=== PATIENT | male | born 1955 | race Caucasian/White ===

== ENCOUNTER 2020-12-27 09:19 | Inpatient (IN) | payer MEDICARE, OTHER ==
[~2020-12-27] VITALS: Ht 182.9 cm; Wt 129.0 kg
[~2020-12-27 09:19] MED LIST: 3IN1 COMMODE; ACETAMINOPHEN500 M1 PO; AMIODARONE HCL200 MG PO; ASCORBIC ACID500 MG PO; ASPIR 8181 MG PO; ATARAX25 MG PO; ATROVENT (00.2 MG/ML INH; BACLOFEN 10MG T10 MG PO; BETADINE30 ML TOP; BREO ELLIPTA 11 EACH INH; BREO ELLIPTA 11 EACH PO; BUSPAR5 MG PO; CLARITIN-D 241 EACH PO; CLARITIN10 MG PO; COLACE100 MG PO; CYCLOBENZAPRINE10 MG PO; CYMBALTA 30MG C30 MG PO; DESENEX85 GM TOP; DIAZEPAM 5MG TAB5 MG PO; DIGITEK125 MCG PO; DIGITEK250 MCG PO; DULERA 200 MCG8.8 GM INH; DUONEB 2.5-0.5M1 AMP INH; DUONEB 2.5-0.5M1 AMP NEB; FLEXERIL5 MG PO; FLOMAX 0.4 MG0.4 MG PO; FLORASTOR250 MG PO; FOLIC ACID1 MG PO; FUROSEMIDE 40MG40 MG PO; HUMULIN R100 UNIT/2 SC; HYTRIN5 MG PO; ILOTYCIN1 GM OU; IMODIUM2 MG PO; LACTINEX1 EACH PO; LANOXIN250 MCG PO; LASIX40 MG PO; LIPITOR80 MG PO; LOPRESSOR25 MG PO; METFORMIN HCL500 MG PO; MICRO-K10 MEQ PO; MUCINEX 600MG600 MG PO; MYCOLOG15 GM TOP; NEURONTIN300 MG PO; NORCO 5-325 TA1 EACH PO; OXYCONTIN 10MG10 MG PO; OXYCONTIN 40MG40 MG PO; OXYCONTIN20 MG PO; PERCOCET 5-3251 EACH PO; POLY-IRON150 MG PO; PRAZOSIN HCL5 MG PO; PREDNISONE 20MG20 MG PO; PREDNISONE5 MG PO; PRILOSEC20 MG PO; PRINIVIL10 MG PO; PROTONIX 40MG T40 MG PO; SANTYL15 GM TOP; SINGULAIR10 MG PO; UROCIT-K10 MEQ PO; VENTOLIN HFA IN18 GM INH; WELLBUTRIN XL150 MG PO; XARELTO10 MG PO; XARELTO20 MG PO
[2020-12-27 10:14] LABS: BASOPHIL 0.4 % (0-2); EOSINOPHIL 2.3 % (0-7); HCT 44.5 % (42.0-52.0); HGB 12.8 g/dl (13.2-18.0); LYMPHOCYTE 13.1 % (15-48); MCH 27.4 pg (25.0-31.0); MCHC 28.8 g/dL (32.0-36.0); MCV 95.1 fL (78.0-100.0); MONOCYTE 6.4 % (0-12); MPV 9.7 fL (6.0-9.5); NEUTROPHIL 77.5 % (41-80); NRBC 0; PLT 265 K/uL (150-400); RBC 4.68 M/uL (4.70-6.00); RDW 15.8 % (11.5-14.0)
[2020-12-27 10:20] LABS: INR 1.06 (0.9-1.2); PROTHROMBIN TIME 13.1 SECONDS (11.4-13.6); PTT 32.6 SECONDS (22.2-34.7)
[2020-12-27 10:26] LABS: ALBUMIN 2.7 g/dL (3.4-5.0); BILIRUBIN - TOTAL 0.5 mg/dL (0.2-1.0); BUN/CREAT RATIO (CALC) 19.5 RATIO; CREATININE 0.77 mg/dL (0.67-1.17); GLOBULIN (CALCULATION) 4.4 g/dL; TOTAL PROTEIN 7.1 g/dL (6.4-8.2)
[2020-12-27] MEDS ORDERED: WELLBUTRIN XL150 MG PO (17:24)
[2020-12-27] MEDS ORDERED: ZOLOFT50 MG PO (17:36)
[2020-12-27] MEDS ORDERED: NEURONTIN300 MG PO (17:42)
[2020-12-27] MEDS ORDERED: BACLOFEN 10MG T10 MG PO (17:45)
[2020-12-27] MEDS ORDERED: POTASSIUM CHLO10 MEQ PO (17:46)
[2020-12-27] MEDS ORDERED: SINGULAIR10 MG PO (17:49)
[2020-12-27] MEDS ORDERED: PHENERGAN25 M1 PO (17:50)
[2020-12-27] MEDS ORDERED: DITROPAN5 MG PO (17:52)
[2020-12-27] MEDS ORDERED: PRINIVIL10 MG PO (17:53)
[2020-12-27] MEDS ORDERED: VENTOLIN HFA IN18 GM INH (17:53)
[2020-12-28 04:30] LABS: BASOPHIL 0.5 % (0-2); EOSINOPHIL 4.2 % (0-7); HCT 42.7 % (42.0-52.0); HGB 12.1 g/dl (13.2-18.0); LYMPHOCYTE 22.9 % (15-48); MCHC 28.3 g/dL (32.0-36.0); MCV 95.3 fL (78.0-100.0); MPV 9.7 fL (6.0-9.5); NEUTROPHIL 62.2 % (41-80); NRBC 0; PLT 257 K/uL (150-400); RBC 4.48 M/uL (4.70-6.00); RDW 15.9 % (11.5-14.0); WBC 8.4 K/uL (4.0-10.5)
[2020-12-28 05:14] LABS: BUN/CREAT RATIO (CALC) 20.8 RATIO; CREATININE 0.77 mg/dL (0.67-1.17); POTASSIUM 5.1 mmol/L (3.5-5.1)
[2020-12-28] MEDS ORDERED: ELIQUIS5 MG PO (10:43)
== END 2020-12-28 16:23 | DRG 175 ==
LOC: FER 09:19 → FTCU 14:58
PROVIDERS: Emergency Medicine; ADMIT Internal Medicine
DX: I26.99 Other pulmonary embolism without acute cor pulmonale (principal); U07.1 COVID-19; J96.10 Chronic respiratory failure, unspecified whether with hypoxia or hypercapnia; I48.91 Unspecified atrial fibrillation; E78.5 Hyperlipidemia, unspecified; J44.9 Chronic obstructive pulmonary disease, unspecified; Z96.612 Presence of left artificial shoulder joint; G47.30 Sleep apnea, unspecified; I25.10 Atherosclerotic heart disease of native coronary artery without angina pectoris; I50.9 Heart failure, unspecified; G47.33 Obstructive sleep apnea (adult) (pediatric); M19.90 Unspecified osteoarthritis, unspecified site; G89.29 Other chronic pain; M54.9 Dorsalgia, unspecified; M10.9 Gout, unspecified; E11.40 Type 2 diabetes mellitus with diabetic neuropathy, unspecified; E66.01 Morbid (severe) obesity due to excess calories; I11.0 Hypertensive heart disease with heart failure; N40.0 Benign prostatic hyperplasia without lower urinary tract symptoms; K21.9 Gastro-esophageal reflux disease without esophagitis; F17.210 Nicotine dependence, cigarettes, uncomplicated; Z95.1 Presence of aortocoronary bypass graft; Z98.42 Cataract extraction status, left eye; Z98.41 Cataract extraction status, right eye; Z88.6 Allergy status to analgesic agent; Z79.01 Long term (current) use of anticoagulants; Z98.890 Other specified postprocedural states; I25.2 Old myocardial infarction
CPT/HCPCS: 36415; 71045; 71275; 80048; 80053; 84484; 85025; 85610; 85730; 93005; 96372; J1170; J1650; J7030; Q9967; U0002

== ENCOUNTER 2021-05-14 05:50 | Emergency (ER) | payer MEDICARE, OTHER ==
[~2021-05-14 05:50] MED LIST changes: +DITROPAN5 MG PO; +ELIQUIS5 MG PO; +PHENERGAN25 M1 PO; +POTASSIUM CHLO10 MEQ PO; +ZOLOFT50 MG PO
[2021-05-14 06:43] LABS: BASOPHIL 0.3 % (0-2); EOSINOPHIL 0.2 % (0-7); HGB 11.4 g/dl (13.2-18.0); LYMPHOCYTE 7.3 % (15-48); MCH 29.4 pg (25.0-31.0); MCHC 29.2 g/dL (32.0-36.0); MCV 100.5 fL (78.0-100.0); MONOCYTE 7.5 % (0-12); MPV 9.8 fL (6.0-9.5); NEUTROPHIL 84.3 % (41-80); NRBC 0.1; PLT 291 K/uL (150-400); RBC 3.88 M/uL (4.70-6.00); RDW 14.7 % (11.5-14.0); WBC 21.1 K/uL (4.0-10.5)
[2021-05-14 06:48] LABS: INR 1.25 (0.9-1.2); PTT 35.3 SECONDS (24.4-34.7)
[2021-05-14 06:49] LABS: D-DIMER 1.09 ug/mLFEU (0.00-0.41)
[2021-05-14 06:57] LABS: ALBUMIN 2.9 g/dL (3.4-5.0); BILIRUBIN - TOTAL 0.3 mg/dL (0.2-1.0); BUN/CREAT RATIO (CALC) 22.1 RATIO; CREATININE 1.04 mg/dL (0.67-1.17); GLOBULIN (CALCULATION) 3.8 g/dL; POTASSIUM 4.9 mmol/L (3.5-5.1); TOTAL PROTEIN 6.7 g/dL (6.4-8.2)
[2021-05-14 07:08] LABS: LACTIC ACID 1.2 mmol/L (0.4-1.9)
[2021-05-14 07:45] LABS: BILIRUBIN 1+ mg/dL (NEGATIVE); BLOOD NEGATIVE Ery/uL (NEGATIVE); CLARITY CLEAR (CLEAR); COLOR YELLOW (YELLOW); GLUCOSE (U) NORMAL (NORMAL); LEUKOCYTES NEGATIVE Leu/uL (NEGATIVE); NITRITE NEGATIVE (NEGATIVE); PROTEIN 2+ mg/dL (NEGATIVE); SPECIFIC GRAVITY >=1.030 (1.001-1.030); UROBILINOGEN 0.2 mg/dL (0.2-1.0)
[2021-05-14 07:53] LABS: AMORPHOUS URATES CRYSTALS TRACE; BACTERIA TRACE
== END 2021-05-14 14:15 | disposition other institution (70) ==
LOC: FER 05:50
PROVIDERS: Emergency Medicine
DX: J96.01 Acute respiratory failure with hypoxia (principal); J18.9 Pneumonia, unspecified organism; J44.1 Chronic obstructive pulmonary disease with (acute) exacerbation; J44.0 Chronic obstructive pulmonary disease with (acute) lower respiratory infection; I21.4 Non-ST elevation (NSTEMI) myocardial infarction; I48.91 Unspecified atrial fibrillation; I45.10 Unspecified right bundle-branch block; E11.9 Type 2 diabetes mellitus without complications; I25.10 Atherosclerotic heart disease of native coronary artery without angina pectoris; I50.9 Heart failure, unspecified; Z88.5 Allergy status to narcotic agent; Z87.891 Personal history of nicotine dependence; Z99.81 Dependence on supplemental oxygen; Z20.822 Contact with and (suspected) exposure to COVID-19
CPT/HCPCS: 36415; 36600; 71045; 71275; 80053; 81001; 82803; 83605; 83880; 84145; 84484; 85025; 85379; 85610; 85730; 87040; 93005; 94760; J2543; J3370; J7050; U0002

== ENCOUNTER 2021-05-25 22:35 | Day surgery (SDCO) | payer MEDICARE, OTHER ==
[~2021-05-25] VITALS: Ht 177.8 cm; Wt 128.4 kg
[2021-05-25 23:16] LABS: INR 1.1 (0.9-1.2); PROTHROMBIN TIME 13.6 SECONDS (11.8-13.4); PTT 31.3 SECONDS (24.4-34.7)
[2021-05-25 23:18] LABS: BASOPHIL 0.2 % (0-2); EOSINOPHIL 0.3 % (0-7); HCT 40.9 % (42.0-52.0); HGB 11.9 g/dl (13.2-18.0); LYMPHOCYTE 3.5 % (15-48); MCH 28.5 pg (25.0-31.0); MCHC 29.1 g/dL (32.0-36.0); MCV 98.1 fL (78.0-100.0); MPV 9.7 fL (6.0-9.5); NRBC 0; PLT 307 K/uL (150-400); RBC 4.17 M/uL (4.70-6.00); RDW 14.7 % (11.5-14.0)
[2021-05-25 23:25] LABS: WBC 34.7 K/uL (4.0-10.5)
[2021-05-25 23:26] LABS: LACTIC ACID 0.6 mmol/L (0.4-1.9)
[2021-05-25 23:29] LABS: ALBUMIN 2.8 g/dL (3.4-5.0); BILIRUBIN - TOTAL 0.5 mg/dL (0.2-1.0); BUN/CREAT RATIO (CALC) 12.2 RATIO; CREATININE 0.74 mg/dL (0.67-1.17); POTASSIUM 5.1 mmol/L (3.5-5.1); TOTAL PROTEIN 6.8 g/dL (6.4-8.2)
[2021-05-25 23:33] LABS: PRO-BNP 405 pg/mL (<125)
[2021-05-26 02:32] LABS: HCT 38.6 % (42.0-52.0)
[2021-05-26 04:50] LABS: BILIRUBIN NEGATIVE (NEGATIVE); BLOOD NEGATIVE Ery/uL (NEGATIVE); CLARITY CLEAR (CLEAR); COLOR YELLOW (YELLOW); GLUCOSE (U) NORMAL (NORMAL); LEUKOCYTES NEGATIVE Leu/uL (NEGATIVE); NITRITE NEGATIVE (NEGATIVE); PROTEIN NEGATIVE (NEGATIVE); UROBILINOGEN 0.2 mg/dL (0.2-1.0)
--- NOTE | 2021-05-26 05:22 | NUR ---
PATIENT ARRIVED TO FLOOR FROM ER. ALERT AND ORIENTED ABLE TO MAKE NEEDS KNOWN. BED IN LOW POSITION CALL LIGHT IN REACH.
[2021-05-26] MEDS ORDERED: ZOFRAN4 M1 PO (05:35)
[2021-05-26] MEDS ORDERED: PHENERGAN25 M1 PO (05:37)
[2021-05-26] MEDS ORDERED: ELIQUIS5 MG PO (05:42)
[2021-05-26] MEDS ORDERED: VOLTAREN **OUT50 MG PO (05:45)
[2021-05-26] MEDS ORDERED: PRILOSEC20 MG PO (05:48)
[2021-05-26] MEDS ORDERED: LACTAID3000 UNI1 PO (05:53)
[2021-05-26] MEDS ORDERED: EYE ITCH RELIEF5 ML EYEBOTH (05:55)
[2021-05-26 09:05] LABS: BASOPHIL 0.3 % (0-2); EOSINOPHIL 0.5 % (0-7); HCT 36.5 % (42.0-52.0); HGB 10.5 g/dl (13.2-18.0); MCH 28.8 pg (25.0-31.0); MCHC 28.8 g/dL (32.0-36.0); MONOCYTE 5.9 % (0-12); MPV 9.7 fL (6.0-9.5); NEUTROPHIL 83.7 % (41-80); NRBC 0; PLT 279 K/uL (150-400); RBC 3.65 M/uL (4.70-6.00); RDW 14.8 % (11.5-14.0)
[2021-05-26 09:13] LABS: WBC 31.5 K/uL (4.0-10.5)
[2021-05-26 09:49] LABS: BUN/CREAT RATIO (CALC) 22.4 RATIO; CREATININE 0.98 mg/dL (0.67-1.17); POTASSIUM 5.8 mmol/L (3.5-5.1)
--- NOTE | 2021-05-26 11:49 | NUR ---
05/26/21 Mr. Ko was admitted from [facility]. Melinda Felton, [facility], reports that they will accept patient back. Aleydadoe Montoyal / POA / daughter wishes for hime to return to [facility].
--- NOTE | 2021-05-26 19:19 | NUR ---
PATIENT C/O CHEST PAIN AT 1700 AFTER AMBULATING TO RESTROOM, TACHYCARDIC HR 120,EKG ABNORMAL DR HASKINS CALLED, TROPONIN ORDERED, TROPONIN NEGATIVE PATIENT SAID HE HAD A SHARP PAIN TO HIS RIGHT CHEST FOLLOWED BY VOMITING,DR. HASKINS ADVISED TO GIVE ZOFRAN AND ALLOW PATIENT TO EAT SUPPER.
[2021-05-27 06:04] LABS: BASOPHIL 0.3 % (0-2); EOSINOPHIL 2.6 % (0-7); HCT 35.6 % (42.0-52.0); HGB 9.9 g/dl (13.2-18.0); LYMPHOCYTE 11.9 % (15-48); MCHC 27.8 g/dL (32.0-36.0); MCV 100.8 fL (78.0-100.0); MPV 9.9 fL (6.0-9.5); NEUTROPHIL 77.8 % (41-80); NRBC 0; PLT 259 K/uL (150-400); RBC 3.53 M/uL (4.70-6.00); RDW 14.8 % (11.5-14.0)
[2021-05-27 06:14] LABS: ALBUMIN 2.4 g/dL (3.4-5.0); BILIRUBIN - TOTAL 0.2 mg/dL (0.2-1.0); CREATININE 0.79 mg/dL (0.67-1.17); GLOBULIN (CALCULATION) 3.2 g/dL; POTASSIUM 4.8 mmol/L (3.5-5.1); TOTAL PROTEIN 5.6 g/dL (6.4-8.2)
--- NOTE | 2021-05-27 15:45 | NUR ---
05/27/21 8591 PT ASKED RN TO GET BAG WITH CLOTHS OUT OF CLOSET SO HE COULD CHECK POCKETS FOR WALLET. PT HAD $317 IN MCCOLLUM IN PANT POCKET. RN AND PT DISCUSSED OPTIONS AND PT STATED AGGREAABLE TO HAVING SECURITY LOCK $300 OF THE MCCOLLUM UP AND KEEP $17 WITH PATIENT. DIETARY AID WAS NOTIFIED AND SECURITY CALLED.
[2021-05-28 06:28] LABS: BASOPHIL 0.4 % (0-2); EOSINOPHIL 4.6 % (0-7); HCT 34.5 % (42.0-52.0); HGB 9.6 g/dl (13.2-18.0); LYMPHOCYTE 21.3 % (15-48); MCH 28.3 pg (25.0-31.0); MCHC 27.8 g/dL (32.0-36.0); MCV 101.8 fL (78.0-100.0); MONOCYTE 9.1 % (0-12); MPV 9.8 fL (6.0-9.5); NEUTROPHIL 64.3 % (41-80); NRBC 0; PLT 234 K/uL (150-400); RBC 3.39 M/uL (4.70-6.00); RDW 14.6 % (11.5-14.0); WBC 12.2 K/uL (4.0-10.5)
[2021-05-28 06:38] LABS: BUN/CREAT RATIO (CALC) 15.8 RATIO; CREATININE 0.76 mg/dL (0.67-1.17); POTASSIUM 4.4 mmol/L (3.5-5.1)
[2021-05-28] MEDS ORDERED: NEURONTIN300 MG PO (10:21)
[2021-05-28] MEDS ORDERED: PERCOCET 5-3251 EACH PO (10:21)
--- NOTE | 2021-05-28 18:29 | NUR ---
05/28/21 Patient is being discahrged today. [employer] delivered a portable 02 tank. Arrangements were made for [facility] to transport to the [facility].
== END 2021-05-28 13:49 ==
LOC: FER 22:35 → FTCU 05-26 03:55
PROVIDERS: Emergency Medicine Emergency Medical Services; Internal Medicine; Nurse Practitioner; ADMIT Internal Medicine
DX: K21.01 Gastro-esophageal reflux disease with esophagitis, with bleeding (principal); I25.10 Atherosclerotic heart disease of native coronary artery without angina pectoris; I48.20 Chronic atrial fibrillation, unspecified; E78.5 Hyperlipidemia, unspecified; I11.0 Hypertensive heart disease with heart failure; I50.9 Heart failure, unspecified; J44.9 Chronic obstructive pulmonary disease, unspecified; K21.9 Gastro-esophageal reflux disease without esophagitis; E11.40 Type 2 diabetes mellitus with diabetic neuropathy, unspecified; E11.51 Type 2 diabetes mellitus with diabetic peripheral angiopathy without gangrene; E66.01 Morbid (severe) obesity due to excess calories; Z95.1 Presence of aortocoronary bypass graft; Z95.0 Presence of cardiac pacemaker; Z96.612 Presence of left artificial shoulder joint; F17.210 Nicotine dependence, cigarettes, uncomplicated; I44.0 Atrioventricular block, first degree; I45.2 Bifascicular block; A41.9 Sepsis, unspecified organism; R07.89 Other chest pain; D72.829 Elevated white blood cell count, unspecified; Z79.01 Long term (current) use of anticoagulants; Z88.5 Allergy status to narcotic agent; Z20.822 Contact with and (suspected) exposure to COVID-19; D64.9 Anemia, unspecified; K64.4 Residual hemorrhoidal skin tags
CPT/HCPCS: 36415; 71260; 80048; 80053; 81003; 82150; 82962; 83605; 83690; 83880; 84145; 84484; 85014; 85018; 85025; 85610; 85730; 86850; 86900; 86901; 87040; 93005; 94010; 94760; C9113; G0378; J0171; J2270; J2354; J2370; J2405; J2543; J2704; J7030; J7120; Q9967; U0002

== ENCOUNTER 2021-12-07 23:41 | Inpatient (IN) | payer MEDICARE, OTHER ==
[~2021-12-07] VITALS: Ht 180.3 cm; Wt 122.3 kg
[~2021-12-07 23:41] MED LIST changes: +EYE ITCH RELIEF5 ML EYEBOTH; +LACTAID3000 UNI1 PO; +VOLTAREN **OUT50 MG PO; +ZOFRAN4 M1 PO
[2021-12-08 00:22] LABS: BASOPHIL 0.2 % (0-2); EOSINOPHIL 0.2 % (0-7); HGB 13.6 g/dl (13.2-18.0); LYMPHOCYTE 3.3 % (15-48); MCHC 27.2 g/dL (32.0-36.0); MCV 95.6 fL (78.0-100.0); MONOCYTE 5.1 % (0-12); MPV 10.2 fL (6.0-9.5); NEUTROPHIL 90.8 % (41-80); NRBC 0; PLT 206 K/uL (150-400); RBC 5.23 M/uL (4.70-6.00); RDW 21.7 % (11.5-14.0)
[2021-12-08 00:33] LABS: BILIRUBIN NEGATIVE (NEGATIVE); BLOOD NEGATIVE Ery/uL (NEGATIVE); CLARITY CLEAR (CLEAR); COLOR YELLOW (YELLOW); GLUCOSE (U) NORMAL (NORMAL); LEUKOCYTES NEGATIVE Leu/uL (NEGATIVE); NITRITE NEGATIVE (NEGATIVE); PROTEIN 2+ mg/dL (NEGATIVE); SPECIFIC GRAVITY >=1.030 (1.001-1.030); UROBILINOGEN 0.2 mg/dL (0.2-1.0)
[2021-12-08 00:43] LABS: AMORPHOUS URATES CRYSTALS MODERATE; BACTERIA 2+; ECSTASY (MDMA) NEGATIVE (NEGATIVE); GRANULAR CASTS MODERATE; MARIJUANA (THC) NEGATIVE (NEGATIVE); METHADONE NEGATIVE (NEGATIVE); MUCOUS MODERATE; OPIATES POSITIVE (NEGATIVE)
[2021-12-08 00:44] LABS: AMPHETAMINES NEGATIVE (NEGATIVE); BARBITURATES NEGATIVE (NEGATIVE); OXYCODONE POSITIVE (NEGATIVE)
[2021-12-08 01:03] LABS: WBC 16.9 K/uL (4.0-10.5)
[2021-12-08 01:09] LABS: BILIRUBIN - TOTAL 0.5 mg/dL (0.2-1.0); BUN/CREAT RATIO (CALC) 15.6 RATIO; CREATININE 1.22 mg/dL (0.67-1.17); GLOBULIN (CALCULATION) 4.1 g/dL; POTASSIUM 5.1 mmol/L (3.5-5.1); TOTAL PROTEIN 7.1 g/dL (6.4-8.2)
[2021-12-08] MEDS ORDERED: AMIODARONE HCL200 MG PO (18:36)
[2021-12-08] MEDS ORDERED: ELIQUIS5 MG PO (18:37)
[2021-12-08] MEDS ORDERED: FEOSOL325 MG PO (18:37)
[2021-12-08] MEDS ORDERED: FLOMAX 0.4 MG0.4 MG PO (18:38)
[2021-12-08] MEDS ORDERED: FLOVENT HFA12 GM INH (18:39)
[2021-12-08] MEDS ORDERED: GABAPENTIN300 MG PO (18:41)
[2021-12-08] MEDS ORDERED: HYDROCORTISONE30 G5 TOP (18:42)
[2021-12-08] MEDS ORDERED: EYE ITCH RELIEF5 ML EYEBOTH (18:44)
[2021-12-08] MEDS ORDERED: IMODIUM2 MG PO (18:44)
[2021-12-08] MEDS ORDERED: PRILOSEC20 MG PO (18:45)
[2021-12-08] MEDS ORDERED: ONDANSETRON ODT4 MG PO (18:46)
[2021-12-08] MEDS ORDERED: PERCOCET 10-321 EACH PO (18:47)
[2021-12-08] MEDS ORDERED: UROCIT-K10 MEQ PO (18:49)
[2021-12-08] MEDS ORDERED: PREDNISONE5 MG PO (18:50)
[2021-12-08] MEDS ORDERED: VENTOLIN HFA IN18 GM INH (18:53)
[2021-12-08] MEDS ORDERED: ZOLOFT100 MG PO (18:53)
[2021-12-08] MEDS ORDERED: VITAMIN B-121000 MC1 PO (18:53)
[2021-12-08 19:30] LABS: BUN/CREAT RATIO (CALC) 20.8 RATIO; CREATININE 1.01 mg/dL (0.67-1.17); POTASSIUM 4.3 mmol/L (3.5-5.1)
[2021-12-08 19:34] LABS: LACTIC ACID 0.9 mmol/L (0.4-1.9)
[2021-12-09 06:07] LABS: BASOPHIL 0.4 % (0-2); EOSINOPHIL 1.9 % (0-7); HCT 44.2 % (42.0-52.0); HGB 12.5 g/dl (13.2-18.0); LYMPHOCYTE 16.6 % (15-48); MCH 26.1 pg (25.0-31.0); MCHC 28.3 g/dL (32.0-36.0); MCV 92.3 fL (78.0-100.0); MONOCYTE 10.4 % (0-12); MPV 10.1 fL (6.0-9.5); NEUTROPHIL 70.5 % (41-80); NRBC 0; PLT 183 K/uL (150-400); RBC 4.79 M/uL (4.70-6.00); RDW 21.2 % (11.5-14.0); WBC 9.4 K/uL (4.0-10.5)
[2021-12-09 06:46] LABS: BUN/CREAT RATIO (CALC) 22.8 RATIO; CREATININE 0.92 mg/dL (0.67-1.17); POTASSIUM 4.1 mmol/L (3.5-5.1)
[2021-12-10 06:38] LABS: BASOPHIL 0.3 % (0-2); EOSINOPHIL 0 % (0-7); HGB 12.2 g/dl (13.2-18.0); LYMPHOCYTE 12.7 % (15-48); MCH 25.9 pg (25.0-31.0); MCHC 28.4 g/dL (32.0-36.0); MCV 91.3 fL (78.0-100.0); MPV 10.2 fL (6.0-9.5); NEUTROPHIL 78.6 % (41-80); NRBC 0; PLT 181 K/uL (150-400); RBC 4.71 M/uL (4.70-6.00); RDW 20.9 % (11.5-14.0); WBC 7.6 K/uL (4.0-10.5)
[2021-12-10 07:14] LABS: BUN/CREAT RATIO (CALC) 21.1 RATIO; CREATININE 0.9 mg/dL (0.67-1.17)
[2021-12-10] MEDS ORDERED: VANCOCIN HCL125 MG PO (12:45)
[2021-12-10] MEDS ORDERED: REMEDY PHYTOPLE85 GM TOP (12:45)
[2021-12-10] MEDS ORDERED: FLORANEX TABLE1 EACH PO (12:45)
[2021-12-10] MEDS ORDERED: PREDNISONE 20MG20 MG PO (12:45)
[2021-12-10] MEDS ORDERED: MACROBID100 MG PO (12:51)
[2021-12-10] MEDS ORDERED: VIBRAMYCIN100 MG PO (12:51)
== END 2021-12-10 14:38 | DRG 177 ==
LOC: FER 23:41 → FTCU 12-08 15:15
PROVIDERS: Emergency Medicine; Nurse Practitioner Acute Care; ADMIT Internal Medicine
PROC: 5A09357 Assistance with Respiratory Ventilation, Less than 24 Consecutive Hours, Continuous Positive Airway Pressure (ICD-10-PCS; principal; 2021-12-08)
PROC: 8E0ZXY6 Isolation (ICD-10-PCS; 2021-12-09)
DX: J15.8 Pneumonia due to other specified bacteria (principal); G93.41 Metabolic encephalopathy; J96.21 Acute and chronic respiratory failure with hypoxia; J96.22 Acute and chronic respiratory failure with hypercapnia; I50.33 Acute on chronic diastolic (congestive) heart failure; J44.0 Chronic obstructive pulmonary disease with (acute) lower respiratory infection; I48.20 Chronic atrial fibrillation, unspecified; N17.9 Acute kidney failure, unspecified; J44.1 Chronic obstructive pulmonary disease with (acute) exacerbation; J98.11 Atelectasis; N39.0 Urinary tract infection, site not specified; I13.0 Hypertensive heart and chronic kidney disease with heart failure and stage 1 through stage 4 chronic kidney disease, or unspecified chronic kidney disease; A04.72 Enterocolitis due to Clostridium difficile, not specified as recurrent; Z20.822 Contact with and (suspected) exposure to COVID-19; J15.212 Pneumonia due to Methicillin resistant Staphylococcus aureus; E11.22 Type 2 diabetes mellitus with diabetic chronic kidney disease; N18.9 Chronic kidney disease, unspecified; E66.01 Morbid (severe) obesity due to excess calories; R91.8 Other nonspecific abnormal finding of lung field; H10.9 Unspecified conjunctivitis; L30.4 Erythema intertrigo; I95.9 Hypotension, unspecified; I25.10 Atherosclerotic heart disease of native coronary artery without angina pectoris; E78.5 Hyperlipidemia, unspecified; K21.9 Gastro-esophageal reflux disease without esophagitis; F41.9 Anxiety disorder, unspecified; G47.33 Obstructive sleep apnea (adult) (pediatric); E11.42 Type 2 diabetes mellitus with diabetic polyneuropathy; I27.20 Pulmonary hypertension, unspecified; E11.51 Type 2 diabetes mellitus with diabetic peripheral angiopathy without gangrene; M51.36 Other intervertebral disc degeneration, lumbar region; N40.1 Benign prostatic hyperplasia with lower urinary tract symptoms; N39.498 Other specified urinary incontinence; R39.15 Urgency of urination; Z96.612 Presence of left artificial shoulder joint; Z86.711 Personal history of pulmonary embolism; I25.2 Old myocardial infarction; Z68.23 Body mass index [BMI] 23.0-23.9, adult; Z95.0 Presence of cardiac pacemaker; Z98.84 Bariatric surgery status; Z98.41 Cataract extraction status, right eye; Z98.42 Cataract extraction status, left eye; Z95.1 Presence of aortocoronary bypass graft; Z98.890 Other specified postprocedural states; Z99.81 Dependence on supplemental oxygen; Z88.5 Allergy status to narcotic agent; Z88.8 Allergy status to other drugs, medicaments and biological substances; Z87.891 Personal history of nicotine dependence
CPT/HCPCS: 36415; 36600; 70450; 71250; 80048; 80053; 80202; 80305; 81001; 82140; 82803; 82962; 83036; 83605; 83880; 84145; 84484; 85025; 87324; 87449; 87493; 93005; 94010; 94640; 94660; C9113; J0692; J1940; J2543; J3370; J7040; J7050; J7512; U0002

== ENCOUNTER 2022-01-13 17:54 | Inpatient (IN) | payer MEDICARE, OTHER ==
[~2022-01-13] VITALS: Ht 175.3 cm; Wt 115.9 kg
[~2022-01-13 17:54] MED LIST changes: +FEOSOL325 MG PO; +FLORANEX TABLE1 EACH PO; +FLOVENT HFA12 GM INH; +GABAPENTIN300 MG PO; +HYDROCORTISONE30 G5 TOP; +MACROBID100 MG PO; +ONDANSETRON ODT4 MG PO; +PERCOCET 10-321 EACH PO; +REMEDY PHYTOPLE85 GM TOP; +VANCOCIN HCL125 MG PO; +VIBRAMYCIN100 MG PO; +VITAMIN B-121000 MC1 PO; +ZOLOFT100 MG PO
[2022-01-13 18:10] LABS: BASOPHIL 0.4 % (0-2); EOSINOPHIL 2.7 % (0-7); HCT 50.1 % (42.0-52.0); HGB 13.7 g/dl (13.2-18.0); LYMPHOCYTE 33.3 % (15-48); MCH 27.1 pg (25.0-31.0); MCHC 27.3 g/dL (32.0-36.0); MCV 99.2 fL (78.0-100.0); MONOCYTE 11.8 % (0-12); MPV 10.5 fL (6.0-9.5); NEUTROPHIL 51.6 % (41-80); NRBC 0.3; PLT 206 K/uL (150-400); RBC 5.05 M/uL (4.70-6.00); RDW 19.8 % (11.5-14.0); WBC 9.8 K/uL (4.0-10.5)
[2022-01-13 18:28] LABS: INR 1.27 (0.9-1.2); PROTHROMBIN TIME 15.2 SECONDS (11.8-13.4); PTT 33.3 SECONDS (24.4-34.7)
[2022-01-13 18:29] LABS: D-DIMER 0.57 ug/mLFEU (0.00-0.41)
[2022-01-13 18:32] LABS: ALBUMIN 3.1 g/dL (3.4-5.0); BILIRUBIN - TOTAL 0.4 mg/dL (0.2-1.0); BUN/CREAT RATIO (CALC) 15.1 RATIO; CREATININE 1.06 mg/dL (0.67-1.17); GLOBULIN (CALCULATION) 4.4 g/dL; LACTIC ACID 0.5 mmol/L (0.4-1.9); POTASSIUM 4.8 mmol/L (3.5-5.1); TOTAL PROTEIN 7.5 g/dL (6.4-8.2)
[2022-01-13 18:58] LABS: CORONAVIRUS 2019 SARS-COV-2 NEGATIVE (NEGATIVE); INFLUENZA A NAA NEGATIVE (NEGATIVE)
[2022-01-13 18:59] LABS: BILIRUBIN NEGATIVE (NEGATIVE); BLOOD NEGATIVE Ery/uL (NEGATIVE); CLARITY CLEAR (CLEAR); COLOR YELLOW (YELLOW); GLUCOSE (U) NORMAL (NORMAL); LEUKOCYTES NEGATIVE Leu/uL (NEGATIVE); NITRITE NEGATIVE (NEGATIVE); PROTEIN NEGATIVE (NEGATIVE); UROBILINOGEN 0.2 mg/dL (0.2-1.0)
[2022-01-14 17:49] LABS: IRON % SATURATION 4.6 %SAT (20-50)
[2022-01-15 05:56] LABS: BASOPHIL 0.1 % (0-2); EOSINOPHIL 0 % (0-7); HCT 47.5 % (42.0-52.0); HGB 13.5 g/dl (13.2-18.0); LYMPHOCYTE 3.7 % (15-48); MCH 26.9 pg (25.0-31.0); MCHC 28.4 g/dL (32.0-36.0); MONOCYTE 1.6 % (0-12); MPV 10.2 fL (6.0-9.5); NEUTROPHIL 93.9 % (41-80); NRBC 0; PLT 172 K/uL (150-400); RBC 5.02 M/uL (4.70-6.00); RDW 19.5 % (11.5-14.0); WBC 15.9 K/uL (4.0-10.5)
[2022-01-15 06:20] LABS: MCV 94.6 fL (78.0-100.0)
[2022-01-15 06:35] LABS: BUN 23 mg/dL (7-18); BUN/CREAT RATIO (CALC) 23.2 RATIO; CHLORIDE 96 mmol/L (98-107); CO2 (BICARBONATE) 45 mmol/L (21-32); CREATININE 0.99 mg/dL (0.67-1.17); GLUCOSE 143 mg/dL (74-106); MAGNESIUM 1.9 mg/dL (1.8-2.4); POTASSIUM 3.8 mmol/L (3.5-5.1)
[2022-01-15 06:36] LABS: C-REACTIVE PROTEIN > 18.00 mg/dL (<=0.90)
[2022-01-16 04:04] LABS: BASOPHIL 0.1 % (0-2); EOSINOPHIL 0 % (0-7); HCT 44.1 % (42.0-52.0); HGB 12.7 g/dl (13.2-18.0); LYMPHOCYTE 2.1 % (15-48); MCH 26.9 pg (25.0-31.0); MCHC 28.8 g/dL (32.0-36.0); MCV 93.4 fL (78.0-100.0); MONOCYTE 4.8 % (0-12); MPV 10.2 fL (6.0-9.5); NRBC 0; PLT 194 K/uL (150-400); RBC 4.72 M/uL (4.70-6.00); RDW 19.4 % (11.5-14.0)
[2022-01-16 04:18] LABS: NEUTROPHIL 92.4 % (41-80)
[2022-01-16 04:39] LABS: BUN/CREAT RATIO (CALC) 28.4 RATIO; C-REACTIVE PROTEIN 10.6 mg/dL (<=0.90); CREATININE 1.02 mg/dL (0.67-1.17); MAGNESIUM 1.9 mg/dL (1.8-2.4); POTASSIUM 3.4 mmol/L (3.5-5.1)
[2022-01-17 06:27] LABS: BASOPHIL 0.1 % (0-2); EOSINOPHIL 0 % (0-7); HCT 47.5 % (42.0-52.0); HGB 13.8 g/dl (13.2-18.0); LYMPHOCYTE 5.8 % (15-48); MCH 27.4 pg (25.0-31.0); MCHC 29.1 g/dL (32.0-36.0); MCV 94.4 fL (78.0-100.0); MONOCYTE 6.2 % (0-12); MPV 10.4 fL (6.0-9.5); NEUTROPHIL 87.3 % (41-80); NRBC 0; PLT 198 K/uL (150-400); RBC 5.03 M/uL (4.70-6.00); RDW 19.6 % (11.5-14.0); WBC 15.8 K/uL (4.0-10.5)
[2022-01-17 06:51] LABS: BUN/CREAT RATIO (CALC) 27.9 RATIO; CREATININE 0.86 mg/dL (0.67-1.17); FOLIC ACID (SERUM) 4.3 ng/mL (8.6-58.9); MAGNESIUM 1.7 mg/dL (1.8-2.4); POTASSIUM 3.9 mmol/L (3.5-5.1)
[2022-01-18 06:02] LABS: BASOPHIL 0.1 % (0-2); EOSINOPHIL 0.6 % (0-7); HCT 45.7 % (42.0-52.0); HGB 13.2 g/dl (13.2-18.0); LYMPHOCYTE 11.9 % (15-48); MCH 27.4 pg (25.0-31.0); MCHC 28.9 g/dL (32.0-36.0); MCV 94.8 fL (78.0-100.0); MONOCYTE 10.3 % (0-12); MPV 10.2 fL (6.0-9.5); NEUTROPHIL 76.6 % (41-80); NRBC 0; PLT 166 K/uL (150-400); RBC 4.82 M/uL (4.70-6.00); RDW 19.2 % (11.5-14.0); WBC 10.6 K/uL (4.0-10.5)
[2022-01-18 06:27] LABS: BUN/CREAT RATIO (CALC) 27.7 RATIO; CREATININE 0.83 mg/dL (0.67-1.17); MAGNESIUM 2.1 mg/dL (1.8-2.4)
[2022-01-19 06:23] LABS: BASOPHIL 0.1 % (0-2); EOSINOPHIL 1.1 % (0-7); HCT 46.7 % (42.0-52.0); HGB 13.4 g/dl (13.2-18.0); LYMPHOCYTE 8.7 % (15-48); MCH 27.3 pg (25.0-31.0); MCHC 28.7 g/dL (32.0-36.0); MCV 95.1 fL (78.0-100.0); MONOCYTE 8.8 % (0-12); MPV 10.9 fL (6.0-9.5); NEUTROPHIL 80.9 % (41-80); NRBC 0; PLT 178 K/uL (150-400); RBC 4.91 M/uL (4.70-6.00)
[2022-01-19 06:52] LABS: BUN/CREAT RATIO (CALC) 28.9 RATIO; CREATININE 0.76 mg/dL (0.67-1.17); POTASSIUM 4.1 mmol/L (3.5-5.1)
[2022-01-20 06:00] LABS: BASOPHIL 0.1 % (0-2); EOSINOPHIL 0.4 % (0-7); HCT 48.7 % (42.0-52.0); HGB 13.9 g/dl (13.2-18.0); LYMPHOCYTE 6.6 % (15-48); MCHC 28.5 g/dL (32.0-36.0); MCV 94.6 fL (78.0-100.0); MONOCYTE 7.3 % (0-12); MPV 10.3 fL (6.0-9.5); NEUTROPHIL 85.2 % (41-80); NRBC 0; PLT 198 K/uL (150-400); RBC 5.15 M/uL (4.70-6.00); RDW 18.9 % (11.5-14.0); WBC 14.3 K/uL (4.0-10.5)
[2022-01-20 06:32] LABS: BUN/CREAT RATIO (CALC) 28.6 RATIO; CREATININE 0.84 mg/dL (0.67-1.17); POTASSIUM 4.5 mmol/L (3.5-5.1)
[2022-01-20] MEDS ORDERED: REMEDY PHYTOPLE85 GM TOP (13:35)
[2022-01-20] MEDS ORDERED: VENTOLIN HFA IN18 GM INH (13:35)
== END 2022-01-20 19:00 | DRG 871 ==
LOC: FER 17:54 → FICU 01-14 01:31 → FTCU 01-16 09:20
PROVIDERS: Emergency Medicine; Family Medicine; Hospitalist; ADMIT Internal Medicine
PROC: 5A09357 Assistance with Respiratory Ventilation, Less than 24 Consecutive Hours, Continuous Positive Airway Pressure (ICD-10-PCS; principal; 2022-01-13)
PROC: 3E03329 Introduction of Other Anti-infective into Peripheral Vein, Percutaneous Approach (ICD-10-PCS; 2022-01-13)
DX: A41.9 Sepsis, unspecified organism (principal); I50.43 Acute on chronic combined systolic (congestive) and diastolic (congestive) heart failure; J96.21 Acute and chronic respiratory failure with hypoxia; J96.22 Acute and chronic respiratory failure with hypercapnia; G93.41 Metabolic encephalopathy; I13.0 Hypertensive heart and chronic kidney disease with heart failure and stage 1 through stage 4 chronic kidney disease, or unspecified chronic kidney disease; J44.1 Chronic obstructive pulmonary disease with (acute) exacerbation; I48.20 Chronic atrial fibrillation, unspecified; R65.20 Severe sepsis without septic shock; L89.321 Pressure ulcer of left buttock, stage 1; L89.311 Pressure ulcer of right buttock, stage 1; Z20.822 Contact with and (suspected) exposure to COVID-19; J20.9 Acute bronchitis, unspecified; D50.9 Iron deficiency anemia, unspecified; I25.10 Atherosclerotic heart disease of native coronary artery without angina pectoris; E78.5 Hyperlipidemia, unspecified; E11.9 Type 2 diabetes mellitus without complications; K21.9 Gastro-esophageal reflux disease without esophagitis; G47.33 Obstructive sleep apnea (adult) (pediatric); I49.5 Sick sinus syndrome; N40.0 Benign prostatic hyperplasia without lower urinary tract symptoms; E11.40 Type 2 diabetes mellitus with diabetic neuropathy, unspecified; E11.51 Type 2 diabetes mellitus with diabetic peripheral angiopathy without gangrene; I27.20 Pulmonary hypertension, unspecified; Z96.612 Presence of left artificial shoulder joint; M10.9 Gout, unspecified; E66.01 Morbid (severe) obesity due to excess calories; Z99.81 Dependence on supplemental oxygen; Z95.1 Presence of aortocoronary bypass graft; Z95.0 Presence of cardiac pacemaker; Z98.84 Bariatric surgery status; Z86.711 Personal history of pulmonary embolism; Z79.01 Long term (current) use of anticoagulants; Z79.899 Other long term (current) drug therapy; Z88.5 Allergy status to narcotic agent; Z91.040 Latex allergy status; Z87.891 Personal history of nicotine dependence; Z98.41 Cataract extraction status, right eye; Z98.42 Cataract extraction status, left eye; Z68.39 Body mass index [BMI] 39.0-39.9, adult
CPT/HCPCS: 36415; 36600; 71045; 80048; 80053; 80202; 81003; 82746; 82803; 83540; 83550; 83605; 83735; 83880; 84145; 84484; 85025; 85379; 85610; 85730; 86140; 87040; 87070; 87088; 87205; 93005; 94010; 94640; 94660; 94667; 94668; 96372; 97162; 97165; 97530-GP; 97535; C9113; J0692; J1650; J2543; J2916; J2930; J3370; J3475; J7050; J7512; U0002

== ENCOUNTER 2022-05-03 05:28 | Inpatient (IN) | payer MEDICARE, OTHER ==
[~2022-05-03] VITALS: Ht 180.3 cm; Wt 116.6 kg
[~2022-05-03 05:28] MED LIST changes: +ARTHRITIS PAIN150 GM TOP; +AZITHROMYCIN250 MG PO; +CEFDINIR300 MG PO; +TRIAMCINOLONE A80 GM TOP
[2022-05-03 06:01] LABS: BASOPHIL 0.2 % (0-2); EOSINOPHIL 0.7 % (0-7); HCT 45.5 % (42.0-52.0); HGB 13.3 g/dl (13.2-18.0); MCH 30.2 pg (25.0-31.0); MCHC 29.2 g/dL (32.0-36.0); MCV 103.2 fL (78.0-100.0); MONOCYTE 4.3 % (0-12); NEUTROPHIL 87.4 % (41-80); NRBC 0; PLT 180 K/uL (150-400); RBC 4.41 M/uL (4.70-6.00)
[2022-05-03 06:11] LABS: WBC 19.2 K/uL (4.0-10.5)
[2022-05-03 06:36] LABS: CORONAVIRUS 2019 SARS-COV-2 NEGATIVE (NEGATIVE); INFLUENZA A NAA NEGATIVE (NEGATIVE)
[2022-05-03 07:06] LABS: LACTIC ACID 1.8 mmol/L (0.4-1.9)
[2022-05-03 07:21] LABS: ALBUMIN 2.9 g/dL (3.4-5.0); BILIRUBIN - TOTAL 0.5 mg/dL (0.2-1.0); BUN/CREAT RATIO (CALC) 24.4 RATIO; CREATININE 0.9 mg/dL (0.67-1.17); GLOBULIN (CALCULATION) 4.2 g/dL; TOTAL PROTEIN 7.1 g/dL (6.4-8.2)
--- NOTE | 2022-05-03 15:06 | NUR ---
05/03/22 [facility], [facility], reports plans to accept Mr. Ko back. A new COVID test will be required.
[2022-05-04 06:18] LABS: BASOPHIL 0.2 % (0-2); EOSINOPHIL 1.1 % (0-7); HCT 39.5 % (42.0-52.0); HGB 11.7 g/dl (13.2-18.0); MCH 29.8 pg (25.0-31.0); MCHC 29.6 g/dL (32.0-36.0); MCV 100.5 fL (78.0-100.0); MONOCYTE 7.1 % (0-12); MPV 10.2 fL (6.0-9.5); NEUTROPHIL 80.1 % (41-80); NRBC 0; PLT 172 K/uL (150-400); RBC 3.93 M/uL (4.70-6.00); RDW 15.3 % (11.5-14.0)
[2022-05-04 07:26] LABS: BUN/CREAT RATIO (CALC) 28.2 RATIO; CREATININE 0.71 mg/dL (0.67-1.17); MAGNESIUM 1.7 mg/dL (1.8-2.4); POTASSIUM 3.7 mmol/L (3.5-5.1)
[2022-05-04 12:17] LABS: BILIRUBIN NEGATIVE (NEGATIVE); BLOOD NEGATIVE Ery/uL (NEGATIVE); CLARITY CLEAR (CLEAR); COLOR YELLOW (YELLOW); GLUCOSE (U) NORMAL (NORMAL); LEUKOCYTES NEGATIVE Leu/uL (NEGATIVE); NITRITE NEGATIVE (NEGATIVE); PROTEIN NEGATIVE (NEGATIVE); UROBILINOGEN 0.2 mg/dL (0.2-1.0); pH 6.5 (5.0-9.0)
[2022-05-04 12:29] LABS: BACTERIA TRACE; MUCOUS TRACE; SQUAMOUS EPITHELIAL CELLS RARE; URINARY RBC RARE; URINARY WBC RARE
[2022-05-05 06:53] LABS: BASOPHIL 0.5 % (0-2); EOSINOPHIL 4.2 % (0-7); HCT 36.5 % (42.0-52.0); LYMPHOCYTE 18.8 % (15-48); MCH 30.4 pg (25.0-31.0); MCHC 30.1 g/dL (32.0-36.0); MCV 100.8 fL (78.0-100.0); MONOCYTE 8.7 % (0-12); MPV 10.2 fL (6.0-9.5); NEUTROPHIL 67.3 % (41-80); NRBC 0; PLT 169 K/uL (150-400); RBC 3.62 M/uL (4.70-6.00); RDW 15.2 % (11.5-14.0); WBC 7.7 K/uL (4.0-10.5)
[2022-05-05 07:29] LABS: CREATININE 0.6 mg/dL (0.67-1.17); MAGNESIUM 1.9 mg/dL (1.8-2.4); POTASSIUM 3.7 mmol/L (3.5-5.1)
[2022-05-07 03:41] LABS: BASOPHIL 0.5 % (0-2); EOSINOPHIL 4.4 % (0-7); HCT 38.9 % (42.0-52.0); HGB 11.8 g/dl (13.2-18.0); LYMPHOCYTE 14.2 % (15-48); MCH 30.3 pg (25.0-31.0); MCHC 30.3 g/dL (32.0-36.0); MONOCYTE 10.4 % (0-12); MPV 9.7 fL (6.0-9.5); NEUTROPHIL 70.2 % (41-80); NRBC 0; PLT 171 K/uL (150-400); RBC 3.89 M/uL (4.70-6.00); RDW 14.9 % (11.5-14.0); WBC 7.6 K/uL (4.0-10.5)
[2022-05-07 03:57] LABS: BUN/CREAT RATIO (CALC) 13.6 RATIO; C-REACTIVE PROTEIN 4.5 mg/dL (<=0.90); CREATININE 0.66 mg/dL (0.67-1.17); POTASSIUM 4.3 mmol/L (3.5-5.1)
[2022-05-09 06:41] LABS: BASOPHIL 0.2 % (0-2); BUN/CREAT RATIO (CALC) 17.9 RATIO; CREATININE 0.67 mg/dL (0.67-1.17); EOSINOPHIL 0.1 % (0-7); HCT 39.3 % (42.0-52.0); LYMPHOCYTE 9.8 % (15-48); MAGNESIUM 1.8 mg/dL (1.8-2.4); MCH 30.1 pg (25.0-31.0); MCHC 30.5 g/dL (32.0-36.0); MCV 98.5 fL (78.0-100.0); MPV 9.9 fL (6.0-9.5); NEUTROPHIL 81.3 % (41-80); NRBC 0; PLT 187 K/uL (150-400); POTASSIUM 4.4 mmol/L (3.5-5.1); RBC 3.99 M/uL (4.70-6.00); RDW 14.8 % (11.5-14.0); WBC 12.1 K/uL (4.0-10.5)
[2022-05-10 06:25] LABS: BASOPHIL 0.4 % (0-2); EOSINOPHIL 2.8 % (0-7); HCT 37.9 % (42.0-52.0); HGB 11.6 g/dl (13.2-18.0); LYMPHOCYTE 12.9 % (15-48); MCH 30.4 pg (25.0-31.0); MCHC 30.6 g/dL (32.0-36.0); MCV 99.2 fL (78.0-100.0); MONOCYTE 9.6 % (0-12); NEUTROPHIL 73.7 % (41-80); NRBC 0; PLT 189 K/uL (150-400); RBC 3.82 M/uL (4.70-6.00); RDW 15.2 % (11.5-14.0); WBC 10.6 K/uL (4.0-10.5)
[2022-05-10 07:02] LABS: BUN/CREAT RATIO (CALC) 18.8 RATIO; CREATININE 0.69 mg/dL (0.67-1.17); POTASSIUM 4.6 mmol/L (3.5-5.1)
[2022-05-11 06:42] LABS: HCT 36.3 % (42.0-52.0); HGB 11.2 g/dl (13.2-18.0); MCH 30.5 pg (25.0-31.0); MCHC 30.9 g/dL (32.0-36.0); MCV 98.9 fL (78.0-100.0); MPV 9.8 fL (6.0-9.5); RBC 3.67 M/uL (4.70-6.00); RDW 15.1 % (11.5-14.0); WBC 8.6 K/uL (4.0-10.5)
[2022-05-11 06:51] LABS: BUN/CREAT RATIO (CALC) 18.2 RATIO; CREATININE 0.66 mg/dL (0.67-1.17); POTASSIUM 4.1 mmol/L (3.5-5.1)
[2022-05-11] MEDS ORDERED: AUGMENTIN 500-1 EACH PO (09:00)
[2022-05-11] MEDS ORDERED: SACCHAROMYCES250 MG PO (09:00)
[2022-05-11] MEDS ORDERED: PERCOCET 10-321 EACH PO (09:00)
[2022-05-11] MEDS ORDERED: ZYVOX600 MG PO (09:00)
== END 2022-05-11 16:20 | DRG 871 ==
LOC: FER 05:28 → FICU 07:32 → FTCU 05-06 16:51 → FMS 05-10 12:30
PROVIDERS: Emergency Medicine; Internal Medicine; Student in an Organized Health Care Education/Training Program; ADMIT Family Medicine
PROC: 5A09357 Assistance with Respiratory Ventilation, Less than 24 Consecutive Hours, Continuous Positive Airway Pressure (ICD-10-PCS; 2022-05-03)
PROC: 3E03329 Introduction of Other Anti-infective into Peripheral Vein, Percutaneous Approach (ICD-10-PCS; 2022-05-03)
PROC: 0DB38ZX Excision of Lower Esophagus, Via Natural or Artificial Opening Endoscopic, Diagnostic (ICD-10-PCS; 2022-05-11)
PROC: 0DB98ZX Excision of Duodenum, Via Natural or Artificial Opening Endoscopic, Diagnostic (ICD-10-PCS; principal; 2022-05-11 10:30)
PROC: 0DB78ZX Excision of Stomach, Pylorus, Via Natural or Artificial Opening Endoscopic, Diagnostic (ICD-10-PCS; 2022-05-11 10:30)
DX: A41.9 Sepsis, unspecified organism (principal); G93.41 Metabolic encephalopathy; J69.0 Pneumonitis due to inhalation of food and vomit; J96.21 Acute and chronic respiratory failure with hypoxia; I50.43 Acute on chronic combined systolic (congestive) and diastolic (congestive) heart failure; J96.22 Acute and chronic respiratory failure with hypercapnia; J18.9 Pneumonia, unspecified organism; J44.1 Chronic obstructive pulmonary disease with (acute) exacerbation; I48.20 Chronic atrial fibrillation, unspecified; J44.0 Chronic obstructive pulmonary disease with (acute) lower respiratory infection; Z68.41 Body mass index [BMI] 40.0-44.9, adult; R65.20 Severe sepsis without septic shock; Z20.822 Contact with and (suspected) exposure to COVID-19; D64.9 Anemia, unspecified; R13.10 Dysphagia, unspecified; Y95 Nosocomial condition; E78.5 Hyperlipidemia, unspecified; K21.9 Gastro-esophageal reflux disease without esophagitis; G47.33 Obstructive sleep apnea (adult) (pediatric); E11.9 Type 2 diabetes mellitus without complications; M10.9 Gout, unspecified; F17.290 Nicotine dependence, other tobacco product, uncomplicated; I11.0 Hypertensive heart disease with heart failure; I25.10 Atherosclerotic heart disease of native coronary artery without angina pectoris; E66.01 Morbid (severe) obesity due to excess calories; K22.89 Other specified disease of esophagus; Z88.5 Allergy status to narcotic agent; Z79.02 Long term (current) use of antithrombotics/antiplatelets; Z91.040 Latex allergy status; Z79.01 Long term (current) use of anticoagulants; Z79.899 Other long term (current) drug therapy; Z99.81 Dependence on supplemental oxygen; Z95.0 Presence of cardiac pacemaker; Z95.1 Presence of aortocoronary bypass graft; Z83.3 Family history of diabetes mellitus; Z82.3 Family history of stroke
CPT/HCPCS: 36415; 36600; 71045; 71275; 74230; 80048; 80053; 81001; 82803; 83605; 83735; 83880; 84145; 84484; 85025; 86140; 87040; 87070; 87205; 92526; 92611; 93005; 94010; 94640; 94660; 94667; 94668; C9113; J0692; J0780; J1940; J2020; J2185; J2250; J2405; J2920; J3475; J7030; J7120; Q9967; U0002